=== PATIENT | male | born 1970 | race Caucasian/White ===

== ENCOUNTER 2017-10-29 11:42 | Emergency (ER) | payer OTHER ==
--- NOTE | 2017-10-29 12:23 | EDM.PDOC ---
ED HPI GENERAL MEDICAL PROBLEM - General Chief Complaint: Headache Stated Complaint: headache Time Seen by Provider: 10/29/17 12:05 Source of Information: Reports: Patient, Family, RN - History of Present Illness INITIAL COMMENTS - FREE TEXT/NARRATIVE: 47 yr male presents with headache, weakness, and not feeling well. He has noted tingling/numbness to hands and whiteness to hands. States poor appetite and not eating or drinking well. states some concern of meningitis, because she had this in past with a headache. States she has been with pt with illness and never has been this bad for him. Symptoms started Wednesday/Wednesday of this week. He lives in [place] and has been traveling to [place] this week and doing some sight seeing along the way and lots of driving. Also states he did have a puncture to right hand from his dog and a little concerned about rabies. States the dog was cornered by some coyote in September and don't know if the dog got bit. The dog is fine and no symptoms of rabies at this time. states some mosquito bites in [place] and [place], no tick bites and had been to [place] last month. Pt is usually active and works daily and activity no in not like him. Left Headache Pain Score (Numeric/FACES): 5 - Related Data Allergies Allergy/AdvReac Type Severity Reaction Status Date / Time No Known Allergies Allergy Verified 10/29/17 13:34 Home Meds: Home Meds Lisinopril 10 mg PO DAILY 10/29/17 [History] Omeprazole 40 mg PO DAILY 10/29/17 [History] ED ROS GENERAL - Review of Systems Review Of Systems: See Below Constitutional: Reports: Fever, Weakness, Fatigue, Decreased Appetite HEENT: Reports: No Symptoms Respiratory: Reports: No Symptoms. Denies: Shortness of Breath, Wheezing, Cough Cardiovascular: Reports: Lightheadedness. Denies: Chest Pain, Edema, Syncope Endocrine: Reports: No Symptoms GI/Abdominal: Reports: Decreased Appetite. Denies: Nausea, Vomiting : Reports: Other (decreased urination) Musculoskeletal: Reports: Neck Pain, Joint Pain Skin: Reports: No Symptoms Neurological: Reports: Headache, Tingling, Weakness. Denies: Confusion, Trouble Speaking, Change in Speech, Gait Disturbance Psychiatric: Reports: No Symptoms Hematologic/Lymphatic: Reports: No Symptoms Immunologic: Reports: No Symptoms - Physical Exam Exam: See Below Exam Limited By: No Limitations General Appearance: Alert, No Apparent Distress Ears: Hearing Grossly Normal Nose: Normal Inspection Throat/Mouth: Normal Inspection, Normal Voice, No Airway Compromise Head Exam: Atraumatic, Normocephalic Neck: Normal Inspection, Supple, Other (No pain with chin to chest. ) Respiratory/Chest: No Respiratory Distress, Lungs Clear, Normal Breath Sounds Cardiovascular: Normal Peripheral Pulses, Regular Rate, Rhythm, No Edema GI/Abdominal: Soft, Non-Tender (Male) Exam: Deferred Rectal (Males) Exam: Deferred Neuro Exam (Abbreviated): Alert, Oriented, Normal Cognition Back Exam: Normal Inspection, Full Range of Motion, Other (no pain with knees to chest or chin to chest.) Extremities: Normal Inspection, Normal Range of Motion, No Pedal Edema, Normal Capillary Refill. No: Joint Swelling, Increased Warmth Psychiatric: Normal Affect, Other (quiet) Skin Exam: Warm, Dry, Normal Color Course - Vital Signs Last Recorded V/S: Last Vital Signs Temp 99 F 10/29/17 17:20 Pulse 72 10/29/17 17:20 Resp 16 10/29/17 17:20 BP 126/82 10/29/17 17:20 Pulse Ox 100 10/29/17 17:20 - Orders/Labs/Meds Orders: Active Orders 24 hr Category Date Time Status Peripheral IV Insertion Adult [OM.PC] Routine Oth 10/29/17 14:23 Ordered Labs: Laboratory Tests 10/29/17 10/29/17 10/29/17 Range/Units 12:10 12:10 12:15 WBC 3.7 L (4.0-11.0) K/uL RBC 4.57 (4.50-6.50) M/uL Hgb 13.5 (13.0-18.0) g/dL Hct 39.3 L (40.0-54.0) % MCV 86 (76-96) fL MCH 29.5 (27.0-32.0) pg MCHC 34.4 (31.0-35.0) g/dL RDW 13.2 (11.0-16.0) % Plt Count 115 L (150-400) K/uL MPV 9.5 (6.0-10.0) fL Neut % (Auto) 70.3 H (45.0-70.0) % Lymph % (Auto) 16.7 L (20.0-40.0) % [place] % (Auto) 11.7 H (3.0-10.0) % Eos % (Auto) 0.8 L (1.0-5.0) % Baso % (Auto) 0.5 (0.0-0.5) % Neut # (Auto) 2.57 (2.00-7.50) K/uL Lymph # (Auto) 0.61 L (1.50-4.00) K/uL [place] # (Auto) 0.43 (0.20-0.80) K/uL Eos # (Auto) 0.03 L (0.04-0.40) K/uL Baso # (Auto) 0.02 (0.02-0.10) K/uL Sodium 138 (136-145) mmol/L Potassium 3.5 (3.5-5.1) mmol/L Chloride 102 (98-107) mmol/L Carbon Dioxide 26.2 (21.0-32.0) mmol/L Anion Gap 13.3 (5.0-15.0) mmol/L BUN 19 (8-26) mg/dL Creatinine 1.23 (0.70-1.30) mg/dL Est Cr Clr Drug Dosing TNP Estimated GFR (MDRD) > 60 (>60) MLS/MIN BUN/Creatinine Ratio 15.4 (6-25) Glucose 126 H (74-100) mg/dL Calcium 8.5 (8.5-10.1) mg/dL Total Bilirubin 0.9 (0.0-1.0) mg/dL AST 54 H (15-37) U/L ALT 99 H (12-78) U/L Alkaline Phosphatase 78 (46-116) U/L Total Protein 6.8 (6.4-8.2) g/dL Albumin 3.5 (3.4-5.0) g/dL Globulin 3.3 (2.2-4.2) g/dL Albumin/Globulin Ratio 1.1 (0.8-2.0) Urine Color [place] Urine Appearance Slightly cloudy (CLEAR) Urine pH 5.5 (5.0-8.0) Ur Specific [place] 1.025 (1.003-1.030) Urine Protein 100 H (NEGATIVE) mg/dL Urine Glucose (UA) Negative (NEGATIVE) mg/dL Urine Ketones 15 H (NEGATIVE) mg/dL Urine Occult Blood Moderate H (NEGATIVE) Urine Nitrite Negative (NEGATIVE) Urine Bilirubin Small H (NEGATIVE) Urine Urobilinogen 4.0 H (0.2-1.0) E.U./dL Ur Leukocyte Esterase Negative (NEGATIVE) Urine RBC 5-10 H /HPF Urine WBC Not seen /HPF Ur Squamous Epith Cells Occasional /HPF Urine Bacteria Rare /HPF Meds: Medications Discontinued Medications Generic Name Dose Route Start Last Admin Trade Name Freq PRN Reason Stop Dose Admin Hydrocodone Bitart/Acetaminophen 1 tab 10/29/17 13:36 10/29/17 13:39 [place] 325-10 Mg PO 1 tab Q4H PRN Administration Headache Hydrocodone Bitart/Acetaminophen Confirm 10/29/17 13:42 10/29/17 13:44 [place] 325-10 Mg Administered 10/29/17 13:43 Not Given Dose 1 tab .ROUTE .STK-MED ONE Cyclobenzaprine HCl 10 mg 10/29/17 14:29 10/29/17 14:31 Flexeril PO 10/29/17 14:30 10 mg ONETIME ONE Administration Cyclobenzaprine HCl Confirm 10/29/17 14:35 10/29/17 15:10 Flexeril Administered 10/29/17 14:36 Not Given Dose 10 mg .ROUTE .STK-MED ONE Hydromorphone HCl Confirm 10/29/17 15:09 10/29/17 15:09 Dilaudid Administered 10/29/17 15:10 Not Given Dose 4 mg .ROUTE .STK-MED ONE Hydromorphone HCl 1 mg 10/29/17 15:08 10/29/17 15:10 Dilaudid IVPUSH 1 mg Q2H PRN Administration Pain Hydromorphone HCl 1 mg 10/29/17 15:40 10/29/17 15:42 Dilaudid IVPUSH 10/29/17 15:41 1 mg ONETIME ONE Administration Sodium Chloride 1,000 mls @ 500 mls/hr 10/29/17 13:45 10/29/17 15:25 Normal Saline IV 700 mls/hr ASDIRECTED KATHI Administration Ibuprofen Confirm 10/29/17 16:50 10/29/17 17:00 Motrin Administered 10/29/17 16:51 Not Given Dose 600 mg .ROUTE .STK-MED ONE Ibuprofen 600 mg 10/29/17 16:46 10/29/17 16:45 Motrin PO 10/29/17 16:47 600 mg ONETIME ONE Administration Sodium Chloride 10 ml 10/29/17 14:23 10/29/17 13:45 Saline Flush FLUSH 10 ml ASDIRECTED PRN Administration Keep Vein Open - Re-Assessments/Exams Free Text/Narrative Re-Assessment/Exam: 10/29/17 16:48 Reviewed lab results and head CT with pt and . consult w Dr Hedrick and Dr Hedrick did assess pt and discuss lab results with pt and . Possible viral infection, with headache and neck pain. Total of 2,000cc Nacl infused and pain medication given, titrated for pain from a level of 8/10 to 5/ 10. Ice to head and pt is resting. Hydrocodone 10mg /APAP 325 given, Flexeril 10 mg PO given, and Dilaudid 1mg IV X 2 given to decrease pain. Pt states feeling some better. Achiness is better to joints, rubbing head. Tingling/ numbness to arms is improved. Pt sitting up some and eating. 10/30/17 13:58 LE Reviewed lab results again with pt. Slight elevation of liver enzymes. States no history of excessive use of Tylenol and doesn't drink alcohol. Will obtain hepatitis panel. Pt was able to eat a sandwich and have some soup and a mountain dew. Will discharge to care of . Return to ER or clinic if symptoms persist or worsen. F/U with PCP next week. Probable viral episode and dehydration with tension headache. Recommend continued use of ice to head and neck. Adequate fluids to prevent dehydration and Advil 600 mg PO tid with food for relief of pain as needed. Departure - Departure Time of Disposition: 17:20 Disposition: Home, Self-Care 01 Condition: Good Clinical Impression: Tension-type headache, Viral illness - Discharge Information Instructions: Ibuprofen tablets and capsules, Viral Illness, Adult Referrals: PCP,None [Primary Care Provider] - Forms: ED Department Discharge Care Plan Goals: Can take ibuprofen 600mg 4 x day or 800mg 3 x day but not to exceed 2400mg daily. RTC if symptoms are not relieved - My Orders Last 24 Hours: My Active Orders 10/29/17 14:23 Peripheral IV Insertion Adult [OM.PC] Routine - Assessment/Plan Last 24 Hours: My Active Orders 10/29/17 14:23 Peripheral IV Insertion Adult [OM.PC] Routine
[2017-10-29] MEDS ORDERED: Acetaminophen/HYDROcodone 325-10 MG Tab PO PRN (13:36)
[2017-10-29] MEDS ORDERED: Acetaminophen/HYDROcodone 325-10 MG Tab ONE (13:42)
[2017-10-29] MEDS: Sodium Chloride 0.9% 1,000 ML IV SCH ×5 (13:45→15:25)
[2017-10-29] MEDS ORDERED: Sodium Chloride 0.9% 10 ML Syringe FLUSH PRN (14:23)
[2017-10-29] MEDS ORDERED: Cyclobenzaprine 10 MG Tab PO ONE (14:29)
[2017-10-29] MEDS ORDERED: Cyclobenzaprine 10 MG Tab ONE (14:35)
[2017-10-29] MEDS ORDERED: HYDROmorphone 2 MG/ML Syringe IVPUSH PRN (15:08)
[2017-10-29] MEDS ORDERED: HYDROmorphone 4 MG/ML Syringe ONE (15:09)
[2017-10-29] MEDS ORDERED: HYDROmorphone 2 MG/ML Syringe IVPUSH ONE (15:40)
[2017-10-29] MEDS ORDERED: Ibuprofen 600 MG Tab PO ONE (16:46)
[2017-10-29] MEDS ORDERED: Ibuprofen 600 MG Tab ONE (16:50)
--- NOTE | 2017-10-29 17:22 | CT ---
DATE OF SERVICE: 10/29/17 CLINICAL DATA: headache and neck pain UNENHANCED BRAIN CT: Multislice acquisition through the brain without IV contrast was performed. No priors. No masses or mass effect. No intracranial hemorrhage. No evidence of acute or subacute infarct. No osseous abnormalities. IMPRESSION: Negative exam. [id number] [facility]
== END 2017-10-29 17:20 | disposition home or self-care (01) ==
LOC: LB.ED 11:42
DX: G44.209 Tension-type headache, unspecified, not intractable (principal); B34.9 Viral infection, unspecified
CPT/HCPCS: 36415; 70450; 80053; 80074; 81001; 85025; 87804; 96361; 96374; 96376; 99284; A9270; J1170; J7030; J7050

== ENCOUNTER 2017-10-31 16:13 | Emergency (ER) | payer OTHER ==
--- NOTE | 2017-11-01 17:25 | ER ---
HISTORY OF PRESENT ILLNESS: The patient is a 47-year-old male who comes in today, was seen in the ER 3 days ago. At that time, had a CT scan done and had a white count, comprehensive metabolic panel. Was given some fluids and some pain medication. He was complaining mostly of a headache and neck pain. The patient has not had a lumbar puncture performed. His white count was 3.7. Liver functions were slightly elevated. Platelets were little bit decreased. The patient was felt to have a viral infection and was discharged. He came in today noting that he really has not gotten any better, but he also has not gotten any worse. He has been sick for about a week. He was in [place] prior to coming up here from [place], so he has been in [place] and [place]. He has had some mosquito bites. He denies tick bites. He has been in the water mostly just dangling his feet in the river while he was down in [place]. He is afebrile currently. He has not taken any ibuprofen today. MEDICATIONS: His only medications are omeprazole 40 mg p.o. daily and lisinopril 10 mg p.o. daily. PHYSICAL EXAMINATION: GENERAL: He is alert, oriented, no apparent distress. VITAL SIGNS: Temperature is 98.3, pulse is 84, blood pressure is 134/95, respiratory rate is 12. HEENT: Pupils are equal and reactive to light. Conjunctivae are clear. Throat is minimally erythematous. NECK: Supple. No nodes. LUNGS: Clear. HEART: Regular sinus rhythm without murmur. ABDOMEN: Soft, nontender. Positive bowel sounds. No hepatosplenomegaly. : Was not examined. EXTREMITIES: No clubbing, cyanosis, or edema. NEUROLOGIC: Nonfocal. LABORATORY DATA: His white count is still 3.7. His platelets have improved and they have come up a little to 158. His platelets previously were 115. The patient's liver functions remain slightly elevated. His glucose is now 107, it was 126. His AST was 54, it is now 50. His ALT was 99, it is now 111. He did also have 5-10 red blood cells in his urine. I did not repeat his urine today. Physical exam as noted was largely unchanged. He does not have any meningeal signs. His neck is very flexible. He could potentially have an aseptic meningitis. I did contact Infectious Disease in [place] and run it by them. Differential diagnosis here would be West Nile virus, CMV, and mono. They also noted that if he had any exposure to water, leptospirosis would be a possibility also. I called the patient back. Afterwards, I discharged him because we had an ambulance coming in with a critical patient, and I would not be able to attend to his issues for a couple of hours probably. I did call him back and talked to him on the phone and discussed the possibility of checking for these pathogens. However, they have sent our labs and will not be going out from tomorrow anyway, so he is going to wait and see how he feels over the course of the day. He can come back in tomorrow and we will draw serology for these pathogens. If he starts to look dramatically worse, I would probably go ahead and treat him with doxycycline or Rocephin empirically while awaiting the culture results. I did discuss also doing a lumbar puncture, but that is unlikely to show anything useful, so we did not do this. HOLLY/AUBREY /[id number]
--- NOTE | 2017-12-11 15:43 | ER ---
ADDENDUM: FINAL DIAGNOSIS: Unspecified viral illness. RD/MODL /[id number]
== END 2017-11-01 11:20 | disposition home or self-care (01) ==
LOC: LB.ED 16:13
DX: B34.9 Viral infection, unspecified (principal)
CPT/HCPCS: 36415; 80053; 85025; 99282; 99284